=== PATIENT | female | born 1955 | race Caucasian/White ===

== ENCOUNTER → 2017-07-14 09:35 | Outpatient (CLI) | payer BC, SELFPAY ==
--- NOTE | 2017-07-14 09:39 | MM_ITS ---
MM Dig screening mamm BI w/CAD CAD Screening ORDERING PHYSICIAN : Mac Gregory MD PATIENT AGE: 62 years GENDER: Female COMPARISON: Previous mammograms: October 2014. May 2015 INDICATION: Routine screening 62-year-old no new complaints. Uses estrogen cream Noncontributory family history TECHNIQUE: Standard CC and MLO images were obtained. R2 CAD reviewed. FINDINGS: Moderately dense breast bilaterally with moderate fibroglandular elements most evident towards superior breast RIGHT BREAST:No significant change right breast. Follow up one year on right LEFT BREAST: 6.7 mm area density at the medial left breast on cc view is more evident today than previous studies but I strongly favor this is merely a suspect likely is a summation shadow. And reviewing multiple previous studies including those dating back to 2012 2014. Would also note This region was thoroughly evaluated with spot views and ultrasound June 2016 with no subcutaneous findings.. Thus at this point I would recommend a follow-up mammogram left breast 6 months to confirm this impression.. . Scattered tiny faint calcifications anterior left breast lateral /superior retroareolar region appear stable as well a since 2014 and last years magnification spot views June 2016 but a 6 month follow-up study will be beneficial to further confirm stability of these developing small most likely benign calcifications IMPRESSION: 1. No prominent areas of concern. However there is a Small Focal area of density medial left breast strongly favor is merely summation shadow but would suggest follow-up left mammogram in 6 months to confirm such Six-month follow-up also further support stability of the previously evaluated stable appearing small most likely benign calcifications lateral retroareolar region. 2.. Right breast appears stable with no new concern BI-RADS Category: 3 Benign Finding Short Term Follow-up RECOMMENDED FOLLOW-UP: 6M - 6 MONTH FOLLOW-UP (A letter has been sent to the patient regarding results of the study.)
== END ==
PROVIDERS: Family Provider Internal Medicine Adolescent Medicine; PCP Internal Medicine Adolescent Medicine; Visit Provider Surgery
DX: Z12.31 Encounter for screening mammogram for malignant neoplasm of breast (principal)
CPT/HCPCS: 77067

== ENCOUNTER → 2018-01-22 13:00 | Outpatient (CLI) | payer MEDICARE, SELFPAY ==
--- NOTE | 2018-01-22 | US_ITS ---
MM Dig mamm DX unilat LT CAD, US breast LT complete INDICATION: 6 month follow-up ORDERING PHYSICIAN: Mac Gregory MD PATIENT AGE: 63 years COMPARISON: 07/14/2017 TECHNIQUE: Standard images performed along with problem-solving views and left breast ultrasound FINDINGS: There is average fibroglandular tissue. Once again there is noted asymmetric density in the medial aspect in the subareolar region of the left breast. This does appear to compress out as fibroglandular tissue. Benign-appearing calcification is noted in the lateral aspect of the left breast and subareolar region. On the MLO view there is an irregular density at approximately 8 mm long the inferior aspect of the breast. This however is not duplicated on the MLO view and may be due to summation artifact. Left breast ultrasound: At 3:00 there is a nonspecific 3 mm hypoechoic area. At 6:00 there is an additional 3 mm hypoechoic area. In the retroareolar region, there is a 5 x 5 mm hypoechoic nodule with irregular margins and decreased through transmission of sound. This has a suspicious appearance and biopsy is recommended. This is medial to the nipple. This is in the subcutaneous region therefore, it may be difficult to perform a mammotome biopsy. Core biopsy may be attempted however. IMPRESSION: There is a suspicious 5 mm hypoechoic nodule medial to the nipple in the subareolar region as seen on ultrasound. Ultrasound-guided biopsy is recommended. BI-RADS Category: 4 Suspicious Abnormality-Biopsy Considered RECOMMENDED FOLLOW-UP: BIO - BIOPSY RECOMMENDED (A letter has been sent to the patient regarding results of the study.)
== END ==
PROVIDERS: Family Provider Internal Medicine Adolescent Medicine; PCP Internal Medicine Adolescent Medicine; Visit Provider Surgery
DX: R92.8 Other abnormal and inconclusive findings on diagnostic imaging of breast (principal); N60.12 Diffuse cystic mastopathy of left breast
CPT/HCPCS: 76641; 77065; 77066

== ENCOUNTER → 2018-02-12 10:05 | Outpatient (CLI) | payer MEDICARE, SELFPAY ==
--- NOTE | 2018-02-12 10:08 | US_ITS ---
FNA w guidance x2, US breast LT complete HISTORY: Abnormal left breast ultrasound was suspicious nodule at 3:00 ITS.REASON: left breast nodule ORDERING PHYSICIAN: Mac Gregory MD PATIENT AGE: 63 years COMPARISON: 01/22/2018 Prebiopsy ultrasound: 4 cm performed for prebiopsy planning once again demonstrating the 5 mm hypoechoic nodule with irregular margins at the 3:00 region. In addition, there was a additional hypoechoic nodule at 2:00 measuring approximately 4 mm. This area was also targeted for biopsy. TECHNIQUE: Following obtaining informed consent, using aseptic technique and local anesthesia with buffered lidocaine, fine-needle aspiration was performed of the nodule at 2:00 and at 3:00 of interest using sonographic guidance. 2 passes were made into each nodule with a 21-gauge needle. Specimen was given to cytology. The patient tolerated the procedure well without evidence of immediate complications and left the ultrasound suite in stable condition. CYTOLOGY: Nodule A 2:00: Atypical Nodule B 3:00: Atypical Excisional biopsy suggested by the pathologist of both nodules IMPRESSION: Uneventful sonographic guided fine needle aspiration of 2 nodules in the left breast in the periareolar region both showing a typical cytological features. Excisional of the lesions recommended by the pathologist.
== END ==
PROVIDERS: PCP Nurse Practitioner Family; Visit Provider Surgery
DX: R92.2 Inconclusive mammogram (principal)
CPT/HCPCS: 10022; 76641; 88173; 88305

== ENCOUNTER → 2018-02-23 15:19 | Outpatient (CLI) | payer MEDICARE, SELFPAY ==
[2018-02-23 16:16] LABS: Basophils # 0.1 K/mm3 (0-0.2); Basophils % 0.8 % (0.1-2.0); Eosinophils # 0.1 K/mm3 (0.0-0.4); Eosinophils % 1.9 % (0.1-12.0); Hemoglobin 13.9 g/dL (12.2-16.2); Lymphocytes # 2.1 K/mm3 (0.7-4.5); Lymphocytes % 28.5 K/mm3 (10-50); Mean Corpuscular HGB Conc 30.9 g/dL (31.8-35.4); Mean Corpuscular Hemoglobin 28.6 pg (27.0-31.2); Mean Corpuscular Volume 92.7 fl (81-99); Mean Platelet Volume 7.4 fl (7.4-10.4); Monocytes # 0.4 K/mm3 (0.1-1.0); Monocytes % 5.9 % (1.7-9.3); Neutrophils # 4.6 K/mm3 (1.8-7.8); Neutrophils % 62.9 % (37.0-80.0); Platelet Count 277 K/mm3 (142-424); Red Blood Count 4.86 M/mm3 (4.20-5.40); Red Cell Distribution Width 13.5 % (11.5-17.5); White Blood Count 7.3 K/mm3 (4.8-10.8)
[2018-02-23 19:42] LABS: Anion Gap 11.1 mEq/L (5-15); Blood Urea Nitrogen 17 mg/dL (7-18); Calcium 8.8 mg/dL (8.5-10.1); Carbon Dioxide 30 mmol/L (21.0-32.0); Chloride 105 mmol/L (98-107); Creatinine,Serum 0.75 mg/dL (0.55-1.02); Estimated Glomerular Filt Rate 78 ml/min (>60); GFR (African American) 94 ML/MIN (>60); Glucose 95 mg/dL (74-106); Potassium 4.1 mmoL/L (3.5-5.1); Sodium 142 mmol/L (136-145)
== END ==
PROVIDERS: Visit Provider Surgery
DX: N63.20 Unspecified lump in the left breast, unspecified quadrant (principal); Z15.01 Genetic susceptibility to malignant neoplasm of breast
CPT/HCPCS: 36415; 80048; 85025

== ENCOUNTER → 2018-11-03 09:07 | Outpatient (CLI) | payer MEDICARE, SELFPAY ==
--- NOTE | 2018-11-03 09:11 | XR_ITS ---
XR DEXA axial skeleton HISTORY: ITS.REASON: VIT D DEFICIENCY,POST MENOPAUSAL ORDERING PHYSICIAN: Channing Boo MD PATIENT AGE: 63 years COMPARISON: 02/02/2015 FINDINGS: The BMD measured at the Left femoral neck is 0.864 g/cm squared with a T score of -1.3. This is considered Osteopenic according to the World Health Organization criteria. Fracture risk is Moderate. Treatment is advised. The L1 L4 density has a T score of 0.3. Lumbar density has decreased by 1% in the hip density has increased by 3% IMPRESSION: Osteopenia with moderate fracture risk. Suggest follow-up exam October 2020
== END ==
PROVIDERS: PCP Family Medicine; Visit Provider Family Medicine
DX: Z78.0 Asymptomatic menopausal state (principal); E55.9 Vitamin D deficiency, unspecified
CPT/HCPCS: 77080

== ENCOUNTER → 2019-11-01 12:12 | Outpatient (CLI) | payer MEDICARE, SELFPAY ==
--- NOTE | 2019-11-01 12:20 | XR_ITS ---
PROCEDURE: XR FOOT LT MIN 3V CLINICAL INDICATION: PAIN IN L AND R FOOT Heel pain COMPARISON: No exams were available for comparison FINDINGS: There is a faint oblique lucency through the mid aspect of the middle phalanx of the 2nd toe suggesting a nondisplaced fracture age indeterminate. No other significant anomalies are evident. The joint spaces are well-preserved. No significant degenerative/arthritic changes. No erosive changes evident. Other findings:None. IMPRESSION: Nondisplaced oblique fracture of the mid aspect of the middle phalanx of the 2nd toe age indeterminate otherwise negative Dictated by: Herbert Mata MD 11/01/2019 12:52 Electronically signed by Herbert Mata MD in [facility] 11/01/2019 12:52
--- NOTE | 2019-11-01 12:20 | XR_ITS ---
PROCEDURE: XR FOOT RT MIN 3V CLINICAL INDICATION: The heel pain COMPARISON: No exams were available for comparison FINDINGS: No fracture or dislocation. No lytic or blastic change. There is normal mineralization. The joint spaces are well-preserved. No significant degenerative/arthritic changes. No erosive changes evident. Other findings:None. IMPRESSION: No acute findings. Dictated by: Herbert Mata MD 11/01/2019 12:51 Electronically signed by Herbert Mata MD in [facility] 11/01/2019 12:51
== END ==
PROVIDERS: PCP Nurse Practitioner Family; Visit Provider Nurse Practitioner Family
DX: M79.672 Pain in left foot (principal); M79.671 Pain in right foot
CPT/HCPCS: 73630

== ENCOUNTER → 2019-11-11 09:58 | Outpatient (CLI) | payer MEDICARE, SELFPAY ==
--- NOTE | 2019-11-11 | CA_ITS ---
APPROVED REPORT Health Safety Specialist: CT Laterality: Bilateral Study Quality: Good Indications: Syncope, headache Doppler Spectral Velocity Analysis ECA (R) 110.00/ cm/s ECA (L) 73.30/ cm/s dICA (R) 87.50/25.10 cm/s dICA (L) 78.90/21.60 cm/s Yan (R) 88.50/25.00 cm/s Yan (L) 66.50/27.20 cm/s pICA (R) 76.00/21.40 cm/s pICA (L) 88.70/27.20 cm/s dCCA (R) 118.00/24.40 cm/s dCCA (L) 108.00/25.10 cm/s pCCA (R) 124.00/21.20 cm/s pCCA (L) 121.00/22.30 cm/s Vert (R) 49.50/ cm/s Vert (L) 72.60/ cm/s ICA/CCA 0.75 ICA/CCA 0.82 Findings Duplex evaluation demonstrates stenosis of the right proximal internal carotid artery <20% with PSV <140 cm/sec, EDV <100 cm/sec, and IC/CC Ratio <4.0. Duplex evaluation demonstrates stenosis of the left proximal internal carotid artery <20% with PSV <140 cm/sec, EDV <100 cm/sec, and IC/CC Ratio <4.0. Duplex evaluation demonstrates antegrade flow of the bilateral Vertebral Arteries. Conclusion No increased velocities to suggest hemodynamically significant stenosis in either internal carotid artery. Electronically signed by : Herbert Mata MD 11/11/2019 18:18:14
--- NOTE | 2019-11-11 11:30 | MR_ITS ---
PROCEDURE: MR HEAD/BRAIN WO CON CLINICAL INDICATION: NEAR SYNCOPE, FREQUENT HEADACHES Episode where blacked out x3wks ago. Lt sided head pain behind lt ear. Blurred vision. Prior CT 08-25-14 COMPARISON: HDWO CT HEAD W/O CONTRAST from 08/25/2014 TECHNIQUE: Routine multiplanar multi echo sequences are performed without gadolinium enhancement. FINDINGS: No midline shift, mass effect, intracranial hemorrhage, hydrocephalus, or acute cortical infarction is evident. Increased periventricular T2 signal noted consistent with ischemic gliotic change from microvascular disease. The pituitary, optic chiasm, corpus callosum, and craniocervical junction have an unremarkable appearance. There is a small amount of fluid in the right mastoid sinus. No paranasal sinus air-fluid level evident. IMPRESSION: 1. No acute intracranial findings. 2. Small amount fluid in the right mastoid sinus. Dictated by: Herbert Mata MD 11/12/2019 11:25 Electronically signed by Herbert Mata MD in [facility] 11/12/2019 11:25
== END ==
PROVIDERS: PCP Nurse Practitioner Family; Visit Provider Family Medicine
DX: R51 Headache (principal); R55 Syncope and collapse
CPT/HCPCS: 70551; 93880

== ENCOUNTER → 2019-11-16 13:32 | Outpatient (CLI) | payer MEDICARE, SELFPAY ==
[2019-11-16 22:31] LABS: Blood Urea Nitrogen 16 mg/dl (7-17); Estimated Glomerular Filt Rate 63 ml/min (>60); GFR (African American) 76 ML/MIN (>60)
== END ==
PROVIDERS: Visit Provider Nurse Practitioner Family
DX: R10.10 Upper abdominal pain, unspecified (principal)
CPT/HCPCS: 36415; 82565; 84520

== ENCOUNTER → 2019-11-17 08:49 | Outpatient (CLI) | payer MEDICARE, SELFPAY ==
--- NOTE | 2019-11-17 08:58 | CT_ITS ---
PROCEDURE: CT ABDOMEN W CON CLINICAL HISTORY: ABD PAIN in left upper quadrant since September. COMPARISON: No exams were available for comparison TECHNIQUE: Axial images obtained with sagittal and coronal reformats. All CT scans at the facility use one or more dose reduction, viz: automated exposure control, ma/kV adjustment per patient size (including targeted exams where dose is matched to indication, i.e. head), or iterative reconstruction technique. IV and oral contrast was used. FINDINGS: Lung bases: Included extent of the lung bases are unremarkable for infiltrate or pleural effusion. A small calcified nodule/granuloma is seen posteriorly in the right lower lung lobe. Left breast implant is visualized. Hepatobiliary: There is mildly decreased attenuation of the liver, consistent with mild steatosis. No discrete hepatic lesion is identified. The gallbladder is surgically absent. There is ex vacuo mild dilatation of the biliary ductal system. Pancreas: There is no demonstrated pancreatic mass or cyst. Duct is not dilated. Spleen: The spleen is not enlarged. Calcified granuloma of the spleen. Adrenals: The adrenal glands are normal. Kidneys and visualized ureters: Both kidneys have a normal size and morphology. There is no hydronephrosis. A tiny right renal cortical cyst is seen. Both the visualized ureters have normal course and caliber. No ureteral calculi are identified. Gastrointestinal: There is an ingested fluid/food debris and air is seen in a moderately distended stomach. There is circumferential mild submucosal edema with wall thickening of the gastric antrum/pylorus, suggestive of possible peptic disease. The visualized small bowel and colon is within normal limits. Abundant fecal debris is seen in the ascending and transverse colon. No demonstrated evidence of mechanical bowel obstruction. Lymphatic system: No significant abdominal adenopathy is demonstrated. Vasculature: Normal caliber abdominal aorta. Peritoneum: No free fluid or free air is seen. Abdominal wall and musculoskeletal: There is at L4-L5 left facet arthrosis. IMPRESSION: 1. Moderately distended stomach. Possible submucosal edema with circumferential mild wall thickening of the gastric antrum/pylorus, suggestive of peptic disease in the appropriate clinical context. 2. Large amount of retained fecal debris is seen in the ascending and transverse colon. 3. Mild hepatic steatosis. 4. No enhancing mass or significant lymphadenopathy is seen within the abdomen. Dictated by: Kaylah Orourke 11/17/2019 10:10 Electronically signed by Kaylah Orourke in [facility] 11/17/2019 10:10
== END ==
PROVIDERS: PCP Nurse Practitioner Family; Visit Provider Nurse Practitioner Family
DX: R10.10 Upper abdominal pain, unspecified (principal)
CPT/HCPCS: 74160; Q9967

== ENCOUNTER → 2020-09-07 10:00 | Outpatient (POV) | payer MEDICARE, SELFPAY | PROVIDERS: Visit Provider Audiologist | DX: Z00.00 Encounter for general adult medical examination without abnormal findings (principal) ==

== ENCOUNTER → 2021-01-26 11:30 | Outpatient (CLI) | payer MEDICARE, SELFPAY | PROVIDERS: PCP Nurse Practitioner Family; Visit Provider Nurse Practitioner | DX: Z20.822 Contact with and (suspected) exposure to COVID-19 (principal) | CPT/HCPCS: C9803; U0003; U0005 ==

== ENCOUNTER → 2022-03-15 19:59 | Outpatient (CLI) | payer MEDICARE, SELFPAY ==
--- NOTE | 2022-03-15 20:10 | XR_ITS ---
PROCEDURE INFORMATION: Exam: XR Chest Exam date and time: 03/15/2022 8:02 PM Age: 67 years old Clinical indication: Abnormal findings; Other: Abnormal serum enzyme level; Prior surgery; Surgery date: 6+ months; Surgery type: Mastectomy; Additional info: Abnormal levels of other serum enzyme TECHNIQUE: Imaging protocol: Radiologic exam of the chest. Views: 2 views. COMPARISON: CT ABDOMEN W CON 11/17/2019 9:05 AM FINDINGS: Lungs: No evidence of pneumonia or interstitial edema. Pleural spaces: Unremarkable. No pleural effusion. No pneumothorax. Heart/Mediastinum: Unremarkable. No cardiomegaly. Bones/joints: Unremarkable. IMPRESSION: No evidence of pneumonia or interstitial edema.
== END ==
PROVIDERS: PCP Nurse Practitioner Family; Visit Provider Nurse Practitioner Family
DX: R74.8 Abnormal levels of other serum enzymes (principal)
CPT/HCPCS: 71046

== ENCOUNTER 2024-07-13 10:48 | Outpatient (CLI) | payer MEDICARE, SELFPAY | END 2024-07-13 23:59 | disposition home or self-care (01) | LOC: RT 10:50 | PROVIDERS: PCP Nurse Practitioner Family; Visit Provider Nurse Practitioner Family | DX: R00.2 Palpitations (principal) | CPT/HCPCS: 93225; 93227 ==